=== PATIENT | male | born 1960 | race Native Hawaiian/Other Pacific Islander ===

== ENCOUNTER 2017-01-22 03:57 | Observation (INO) | payer OTHER ==
[~2017-01-22 03:57] MED LIST: MARCAINE 0.5% INFILTRATI ONE; NACL 0.9% IR ONE; XYLOCAINE 1% 20 mL INFILTRATI ONE
[2017-01-22 04:34] LABS: Basophils % (Auto) 0.5 % (0.0-1.8); Eosinophils % (Auto) 0.2 % (0.0-4.3); Hematocrit 39.9 % (35.5-45.6); Mean Corpuscular HGB Conc 35 % (32-34); Mean Corpuscular Hemoglobin 32 pg (28-32); Mean Corpuscular Volume 92 fl (84-94); Platelet Count 215 K/mm3 (140-440); Red Blood Count 4.35 M/mm3 (3.65-5.03); Red Cell Distribution Width 13.7 % (13.2-15.2); White Blood Count 9.1 K/mm3 (4.5-11.0)
[2017-01-22 04:55] LABS: Alanine Aminotransferase 21 units/L (7-56); Albumin 4.6 g/dL (3.9-5); Albumin/Globulin Ratio 1.6 %; Alkaline Phosphatase 61 units/L (35-129); Anion Gap 23 mmol/L; BUN/Creatinine Ratio 16; Blood Urea Nitrogen 11 mg/dL (9-20); Calcium 9.3 mg/dL (8.4-10.2); Carbon Dioxide 21 mmol/L (22-30); Glucose 165 mg/dL (75-100); Lipase 25 units/L (13-60); Potassium 3.8 mmol/L (3.6-5.0); Sodium 136 mmol/L (137-145); Total Protein 7.5 g/dL (6.3-8.2)
[2017-01-22] MEDS ORDERED: ZOFRAN ONE ×2 (04:59→11:20)
[2017-01-22] MEDS ORDERED: ZOFRAN IV ONE ×2 (05:00→06:50)
[2017-01-22 06:05] LABS: Bilirubin,Urine Negative (Negative); Blood,Urine Negative (Negative); Ketones,Urine Trace mg/dL (Negative)
[2017-01-22 06:06] LABS: Leukocyte Esterase,Urine Negative (Negative); Nitrite,Urine Negative (Negative); Urobilinogen,Urine < 2.0 mg/dL (<2.0)
[2017-01-22 06:12] LABS: Bacteria,Urine 1+ /HPF (Negative); RBC,Urine < 1.0 /HPF (0.0-6.0); WBC,Urine < 1.0 /HPF (0.0-6.0)
[2017-01-22] MEDS ORDERED: SUBLIMAZE IV ONE (06:50)
[2017-01-22] MEDS ORDERED: NACL 0.9% 1000 ML 1,000 ML IV ONE (06:50)
--- NOTE | 2017-01-22 06:54 | Emergency Department Report ---
HPI - General Chief Complaint: Abdominal Pain Time Seen by Provider: 01/22/17 06:45 - HPI HPI: Room 4 The patient is a 56-year-old male presenting with a chief complaint of abdominal pain. The patient states yesterday he developed pain in the right lower quadrant that is constant. Patient is to nausea and vomiting. Patient also admits to subjective fever. The patient currently gives his pain a score of 10/10. Patient does admit to anorexia Location: Right lower quadrant Duration: Constant since yesterday Quality: Pain Severity: 10/10 Modifying factors: [see above] Context: [see above] Mode of transportation: [not driving] ED Past Medical Hx - Past Medical History Previous Medical History?: No - Surgical History Past Surgical History?: No - Family History Family history: no significant - Social History Smoking Status: Never Smoker Substance Use Type: None ED Review of Systems ROS: Stated complaint: ABD PAIN Other details as noted in HPI Comment: All other systems reviewed and negative Constitutional: fever (subjective) Eyes: denies: eye pain, eye discharge, vision change ENT: denies: ear pain, throat pain Respiratory: denies: cough, shortness of breath, wheezing Cardiovascular: denies: chest pain, palpitations Endocrine: no symptoms reported Gastrointestinal: abdominal pain, nausea, vomiting Genitourinary: denies: urgency, dysuria Musculoskeletal: denies: back pain, joint swelling, arthralgia Skin: denies: rash, lesions Neurological: denies: headache, weakness, paresthesias Psychiatric: denies: anxiety, depression Hematological/Lymphatic: denies: easy bleeding, easy bruising Physical Exam - Physical Exam Vital Signs: Vital Signs 01/22/17 01/22/17 01/22/17 04:00 04:01 04:15 Temperature 99.5 F Pulse Rate 100 H Respiratory 18 18 Rate Blood Pressure 161/99 O2 Sat by Pulse 100 98 97 Oximetry 01/22/17 01/22/17 01/22/17 04:16 04:18 04:20 Temperature Pulse Rate Respiratory Rate Blood Pressure O2 Sat by Pulse 97 96 96 Oximetry 01/22/17 01/22/17 01/22/17 04:22 04:24 04:25 Temperature Pulse Rate Respiratory Rate Blood Pressure 142/96 O2 Sat by Pulse 97 96 97 Oximetry 01/22/17 01/22/17 01/22/17 04:26 04:28 04:30 Temperature Pulse Rate Respiratory Rate Blood Pressure 142/96 142/96 142/96 O2 Sat by Pulse 96 95 96 Oximetry 01/22/17 01/22/17 01/22/17 04:32 04:34 04:36 Temperature Pulse Rate Respiratory Rate Blood Pressure 142/96 142/96 142/96 O2 Sat by Pulse 94 96 94 Oximetry 01/22/17 01/22/17 01/22/17 04:38 04:40 04:42 Temperature Pulse Rate Respiratory Rate Blood Pressure 142/96 142/96 142/96 O2 Sat by Pulse 97 97 96 Oximetry 01/22/17 01/22/17 01/22/17 04:44 04:46 04:48 Temperature Pulse Rate Respiratory Rate Blood Pressure 142/96 142/96 142/96 O2 Sat by Pulse 96 95 93 Oximetry 01/22/17 01/22/17 04:50 04:52 Temperature Pulse Rate Respiratory Rate Blood Pressure 142/96 142/96 O2 Sat by Pulse 97 97 Oximetry Physical Exam: GENERAL: The patient is well-developed well-nourished male lying on stretcher not appearing to be in acute distress. [] HEENT: Normocephalic. Atraumatic. Extraocular motions are intact. Patient has moist mucous membranes. NECK: Supple. Trachea midline CHEST/LUNGS: Clear to auscultation. There is no respiratory distress noted. HEART/CARDIOVASCULAR: Regular. There is no tachycardia. There is no gallop rub or murmur. ABDOMEN: Abdomen is soft, with tenderness to palpation in the right lower quadrant. Patient has normal bowel sounds. There is no abdominal distention. SKIN: There is no rash. There is no edema. There is no diaphoresis. NEURO: The patient is awake, alert, and oriented. The patient is cooperative. The patient has normal speech MUSCULOSKELETAL: There is no evidence of acute injury. ED Course Vital Signs 01/22/17 01/22/17 01/22/17 04:00 04:01 04:15 Temperature 99.5 F Pulse Rate 100 H Respiratory 18 18 Rate Blood Pressure 161/99 O2 Sat by Pulse 100 98 97 Oximetry 01/22/17 01/22/17 01/22/17 04:16 04:18 04:20 Temperature Pulse Rate Respiratory Rate Blood Pressure O2 Sat by Pulse 97 96 96 Oximetry 01/22/17 01/22/17 01/22/17 04:22 04:24 04:25 Temperature Pulse Rate Respiratory Rate Blood Pressure 142/96 O2 Sat by Pulse 97 96 97 Oximetry 01/22/17 01/22/17 01/22/17 04:26 04:28 04:30 Temperature Pulse Rate Respiratory Rate Blood Pressure 142/96 142/96 142/96 O2 Sat by Pulse 96 95 96 Oximetry 01/22/17 01/22/17 01/22/17 04:32 04:34 04:36 Temperature Pulse Rate Respiratory Rate Blood Pressure 142/96 142/96 142/96 O2 Sat by Pulse 94 96 94 Oximetry 01/22/17 01/22/17 01/22/17 04:38 04:40 04:42 Temperature Pulse Rate Respiratory Rate Blood Pressure 142/96 142/96 142/96 O2 Sat by Pulse 97 97 96 Oximetry 01/22/17 01/22/17 01/22/17 04:44 04:46 04:48 Temperature Pulse Rate Respiratory Rate Blood Pressure 142/96 142/96 142/96 O2 Sat by Pulse 96 95 93 Oximetry 01/22/17 01/22/17 04:50 04:52 Temperature Pulse Rate Respiratory Rate Blood Pressure 142/96 142/96 O2 Sat by Pulse 97 97 Oximetry - Consultations Consultation #1: 01/22/17 07:04 Surgery paged 01/22/17 07:[address] Marquis- recommends administering Zosyn. Will evaluate patient ED Medical Decision Making - Lab Data Result diagrams: 01/22/17 04:26 01/22/17 04:26 Laboratory Tests 01/22/17 01/22/17 01/22/17 04:26 04:26 05:48 WBC 9.1 RBC 4.35 Hgb 14.0 Hct 39.9 MCV 92 MCH 32 MCHC 35 H RDW 13.7 Plt Count 215 Lymph % (Auto) 11.9 L [place] % (Auto) 4.8 Eos % (Auto) 0.2 Baso % (Auto) 0.5 Lymph # 1.1 L [place] # 0.4 Eos # 0.0 Baso # 0.0 Seg Neutrophils % 82.6 H Seg Neutrophils # 7.5 Sodium 136 L Potassium 3.8 Chloride 96.0 L Carbon Dioxide 21 L Anion Gap 23 BUN 11 Creatinine 0.7 L Estimated GFR > 60 BUN/Creatinine Ratio 16 Glucose 165 H Calcium 9.3 Total Bilirubin 1.10 AST 21 ALT 21 Alkaline Phosphatase 61 Total Protein 7.5 Albumin 4.6 Albumin/Globulin Ratio 1.6 Lipase 25 Urine Color Yellow Urine Turbidity Hazy Urine pH 7.0 Ur Specific [place] 1.010 Urine Protein 30 mg/dl Urine Glucose (UA) Negative Urine Ketones Trace Urine Blood Negative Urine Nitrite Negative Urine Bilirubin Negative Urine Urobilinogen < 2.0 Ur Leukocyte Esterase Negative Urine WBC (Auto) < 1.0 Urine RBC (Auto) < 1.0 U Epithel Cells (Auto) < 1.0 Urine Bacteria (Auto) 1+ - Radiology Data Radiology results: report reviewed (CT abdomen and pelvis), image reviewed (CT abdomen and pelvis) CT abdomen and pelvis - Differential Diagnosis appendicitis, renal colic, UTI, pyelonephritis, cholelithiasis, gastritis Critical care attestation.: If time is entered above; I have spent that time in minutes in the direct care of this critically ill patient, excluding procedure time. ED Disposition Clinical Impression: Acute abdominal pain, Acute appendicitis Disposition: OP ADMIT IP TO THIS HOSP Is pt being admited?: Yes Does the pt Need Aspirin: No Condition: Serious Referrals: PRIMARY CARE, [Primary Care Provider] - 3-5 Days Time of Disposition: 07:04 (surgery paged)
--- NOTE | 2017-01-22 07:12 | Cat Scan Report ---
FINAL REPORT EXAM: CT ABDOMEN PELVIS W CON HISTORY: RLQ pain. TECHNIQUE: Axial CT images of the abdomen and pelvis were obtained, following the administration of intravenous contrast only. Delayed axial images and coronal sagittal reformatted images were also obtained. No prior studies are available for comparison. FINDINGS: There is mild diffuse fatty infiltration of the liver. The biliary tree, gallbladder, pancreas, spleen, adrenal glands, and left kidney are unremarkable. A 1.7 cm cyst is seen in the right lower renal pole. Evaluation of the bowel is limited due to lack of oral contrast. There is mild residual stool in the right colon. The appendix is fluid-filled and distended to 1.7 cm in diameter, with mild surrounding inflammatory stranding. A 1.0 cm calcified appendicolith seen at its origin. These findings are indicative acute appendicitis. There is no intestinal obstruction or free air. The abdominal aorta is normal in caliber. There is no pathologic abdominal or pelvic lymphadenopathy. There is no free or loculated fluid collection. There is minimal wall thickening of the anterior-superior urinary bladder. There is no discrete filling defect. The prostate gland is normal in size. [id number] spondylotic and degenerative changes are seen in the spine. There are moderate to severe degenerative changes at the left hip. There are dependent changes seen at both lung bases. These findings were discussed with Dr. Kidd at time of interpretation 7:05 a.m. EST 01/22/2017. IMPRESSION: 1. Findings of acute appendicitis, with 1.0 cm calcified appendicolith at its origin. No intestinal obstruction or free air. 2. Mild diffuse fatty infiltration of the liver. 1.7 cm right renal cyst. 3. Minimal wall thickening of the anterior-superior urinary bladder, query mild cystitis.
[2017-01-22] MEDS: ZOSYN/NS 4.5GM/100ML 4.5 GM/100 ML VIAL IV ONE ×2 (07:29→08:26)
--- NOTE | 2017-01-22 08:39 | History and Physical Report ---
History of Present Illness Date of examination: 01/22/17 Date of admission: 01/22/17 Chief complaint: abd pain History of present illness: 56 year old male with 12-24 hour hx of right lower quadrant abd pain, WBC 9K, CT abd and pelvis positive for acute appendicitis. Past History Past Surgical History: No surgical history Social history: no significant social history, Medications and Allergies Allergies Allergy/AdvReac Type Severity Reaction Status Date / Time No Known Allergies Allergy Verified 01/22/17 03:59 Home Medications Medication Instructions Recorded Confirmed Last Taken Type No Known Home Medications [No 01/22/17 01/22/17 Unknown History Reported Home Medications] Active Meds: Active Medications Sodium Chloride (Nacl 0.9% 1000 Ml) 1,000 mls @ 250 mls/hr IV ONCE ONE Stop: 01/22/17 10:49 Last Admin: 01/22/17 07:25 Dose: 250 mls/hr Review of Systems - Constitutional other (abd pain) Exam Vital Signs Resp Pulse Ox 18 100 01/22/17 04:00 01/22/17 04:00 - General physical appearance Positive: no distress - Eyes Positive: PERRL, normal occular movement - ENT Positive: normal pinna, normal nares, normal mucosa, no hearing loss, no congestion - Neck Positive: no masses, no bruits, trachea midline, no venous distension - Respiratory Positive: normal expansion, normal respiratory effort, clear to auscultation - Cardiovascular Rhythm: regular - Extremities Extremities: no ischemia, pulses symmetrical, No edema Peripheral Pulses: within normal limits - Breasts Breasts: normal - Abdomen Abdomen: Present: tender (right lower quadrant to deep palpation, ), bowel sounds normal Hernia: none - Neurologic Neurologic: alert and oriented to time, place and person, motor strength and sensation are grossly intact - Psychiatric Psychiatric: appropriate mood/affect, intact judgment & insight Results - Labs 01/22/17 04:26 01/22/17 04:26 Abnormal lab results 01/22/17 01/22/17 Range/Units 04:26 04:26 MCHC 35 H (32-34) % Lymph % (Auto) 11.9 L (13.4-35.0) % Lymph # 1.1 L (1.2-5.4) K/mm3 Seg Neutrophils % 82.6 H (40.0-70.0) % Sodium 136 L (137-145) mmol/L Chloride 96.0 L (98-107) mmol/L Carbon Dioxide 21 L (22-30) mmol/L Creatinine 0.7 L (0.8-1.5) mg/dL Glucose 165 H (75-100) mg/dL Diabetes panel 01/22/17 Range/Units 04:26 Sodium 136 L (137-145) mmol/L Potassium 3.8 (3.6-5.0) mmol/L Chloride 96.0 L (98-107) mmol/L Carbon Dioxide 21 L (22-30) mmol/L BUN 11 (9-20) mg/dL Creatinine 0.7 L (0.8-1.5) mg/dL Glucose 165 H (75-100) mg/dL Calcium 9.3 (8.4-10.2) mg/dL AST 21 (5-40) units/L ALT 21 (7-56) units/L Alkaline Phosphatase 61 (35-129) units/L Total Protein 7.5 (6.3-8.2) g/dL Albumin 4.6 (3.9-5) g/dL Calcium panel 01/22/17 Range/Units 04:26 Calcium 9.3 (8.4-10.2) mg/dL Albumin 4.6 (3.9-5) g/dL Pituitary panel 01/22/17 Range/Units 04:26 Sodium 136 L (137-145) mmol/L Potassium 3.8 (3.6-5.0) mmol/L Chloride 96.0 L (98-107) mmol/L Carbon Dioxide 21 L (22-30) mmol/L BUN 11 (9-20) mg/dL Creatinine 0.7 L (0.8-1.5) mg/dL Glucose 165 H (75-100) mg/dL Calcium 9.3 (8.4-10.2) mg/dL Adrenal panel 01/22/17 Range/Units 04:26 Sodium 136 L (137-145) mmol/L Potassium 3.8 (3.6-5.0) mmol/L Chloride 96.0 L (98-107) mmol/L Carbon Dioxide 21 L (22-30) mmol/L BUN 11 (9-20) mg/dL Creatinine 0.7 L (0.8-1.5) mg/dL Glucose 165 H (75-100) mg/dL Calcium 9.3 (8.4-10.2) mg/dL Total Bilirubin 1.10 (0.1-1.2) mg/dL AST 21 (5-40) units/L ALT 21 (7-56) units/L Alkaline Phosphatase 61 (35-129) units/L Total Protein 7.5 (6.3-8.2) g/dL Albumin 4.6 (3.9-5) g/dL Assessment and Plan Acute appendicitis, admit, NPO, IV fluids, antibiotics iv and lap appendectomy/ possible open appendectomy.
[2017-01-22] MEDS ORDERED: XYLOCAINE MPF 2% ONE (09:07)
[2017-01-22] MEDS ORDERED: ZEMURON IV ONE (09:07)
[2017-01-22] MEDS ORDERED: SUBLIMAZE ONE (09:07)
[2017-01-22] MEDS ORDERED: QUELICIN ONE (09:07)
[2017-01-22] MEDS ORDERED: DIPRIVAN 10 MG/ML IV ONE (09:08)
[2017-01-22] MEDS ORDERED: MILK OF MAGNESIA PO PRN (09:30)
[2017-01-22] MEDS ORDERED: TYLENOL PO PRN (09:30)
[2017-01-22] MEDS ORDERED: XYLOCAINE 1% 20 mL ONE (09:30)
[2017-01-22] MEDS ORDERED: MARCAINE 0.5% 30 ML INFILTRATI ONE (09:30)
[2017-01-22] MEDS ORDERED: ZOFRAN IV PRN (09:30)
[2017-01-22] MEDS ORDERED: DILAUDID IV ONE (09:38)
--- NOTE | 2017-01-22 09:40 | Anesthesia Consultation ---
Anesthesia Consult and Med Hx Date of service: 01/22/17 - Airway Anesthetic Teeth Evaluation: Good ROM Head & Neck: Adequate Mental/Hyoid Distance: Adequate Mallampati Class: Class II Intubation Access Assessment: Probably Good - Pulmonary Exam CTA: Yes - Cardiac Exam Cardiac Exam: RRR - Pre-Operative Health Status ASA Pre-Surgery Classification: ASA2 Proposed Anesthetic Plan: General - Pulmonary Hx Smoking: No - Cardiovascular System Hx Hypertension: Yes (not on medication at this time) - Central Nervous System Hx Neuromuscular Disorder: No Hx Psychiatric Problems: No - Gastrointestinal Hx Gastroesophageal Reflux Disease: Yes (mild) - Endocrine Hx Renal Disease: No Hx Insulin Dependent Diabetes: No - Hematic Hx Anemia: No Hx Sickle Cell Disease: No - Other Systems Hx Alcohol Use: Yes (1-2 drinks/week) Hx Substance Use: No Hx Cancer: No Hx Obesity: No
[2017-01-22] MEDS ORDERED: NACL 0.9% 1000 ML 1,000 ML IV SCH (10:00)
[2017-01-22] MEDS ORDERED: VERSED IV NR ×2 (10:00)
[2017-01-22] MEDS ORDERED: PEPCID IV NR (10:00)
[2017-01-22] MEDS ORDERED: LACTATED RINGERS 1,000 ML IV SCH (10:00)
[2017-01-22] MEDS ORDERED: DULCOLAX PR PRN (10:00)
[2017-01-22] MEDS ORDERED: DECADRON ONE (10:31)
[2017-01-22] MEDS ORDERED: NACL 0.9% IR ONE (11:02)
[2017-01-22] MEDS ORDERED: XYLOCAINE 1% 20 mL INFILTRATI ONE (11:15)
[2017-01-22] MEDS ORDERED: MARCAINE 0.5% INFILTRATI ONE (11:15)
--- NOTE | 2017-01-22 11:19 | Post Operative Note ---
Pre-op diagnosis: acute appendicitis Post-op diagnosis: same Findings: acute appendicitis Procedure: laparoscopic appendectomy Anesthesia: GETA Surgeon: RONEN CHAMORRO Estimated blood loss: minimal Pathology: list (appendix) Condition: stable Disposition: floor
[2017-01-22] MEDS: ZOSYN/NS 4.5GM/100ML 4.5 GM/100 ML VIAL IV SCH ×2 (15:00→23:32)
[2017-01-22] MEDS: DILAUDID IV PRN ×2 (16:35→20:25)
[2017-01-23] MEDS: ZOSYN/NS 4.5GM/100ML 4.5 GM/100 ML VIAL IV SCH (06:20)
[2017-01-23 07:57] LABS: Hematocrit 36.2 % (35.5-45.6); Hemoglobin 12.3 gm/dl (11.8-15.2); Mean Corpuscular HGB Conc 34 % (32-34); Mean Corpuscular Hemoglobin 32 pg (28-32); Mean Corpuscular Volume 94 fl (84-94); Platelet Count 186 K/mm3 (140-440); Red Blood Count 3.87 M/mm3 (3.65-5.03); Red Cell Distribution Width 13.9 % (13.2-15.2); White Blood Count 7.6 K/mm3 (4.5-11.0)
[2017-01-23] MEDS: DILAUDID IV PRN (08:56)
[2017-01-23 12:56] VITALS: BP 152/89
--- NOTE | 2017-01-23 13:29 | Discharge Summary ---
Providers - Providers Date of Admission: 01/22/17 09:40 Date of discharge: 01/23/17 Attending physician: RONEN CHAMORRO 01/22/17 07:06 Consult to Physician [CONS] Urgent Consulting Provider: RONEN CHAMORRO Reason For Exam: acute appendicitis Place consult to:: phone Notified:: y Primary care physician: ZAID RODRIGUEZ MD Hospitalization Reason for admission: acute appendicitis Condition: Good Pertinent studies: CT abd pelvis Procedures: lap appendectomy Hospital course: Pt admitted, NPO iv antibiotics and fluids, taken to OR uneventful lap appendectomy, did well, tolerated diet, sent home.POD 1 labs OK. Disposition: DC-01 TO HOME OR SELFCARE Time spent for discharge: 20min. - Discharge Diagnoses (1) Acute appendicitis Status: Acute Qualifiers: Acute appendicitis type: with localized peritonitis Qualified Code(s): K35.3 - Acute appendicitis with localized peritonitis Core Measure Documentation - Palliative Care Palliative Care/ Comfort Measures: Not Applicable - Core Measures Any of the following diagnoses?: none Exam - Constitutional Vitals: Temp Pulse Resp BP Pulse Ox 98.4 F 89 18 152/89 96 01/23/17 12:42 01/23/17 08:31 01/23/17 12:42 01/23/17 12:42 01/23/17 08:31 General appearance: Present: no acute distress - EENT Eyes: Present: PERRL ENT: hearing intact, clear oral mucosa - Neck Neck: Present: supple, normal ROM - Respiratory Respiratory effort: normal - Cardiovascular Rhythm: regular - Extremities Extremities: pulses symmetrical, No edema Peripheral Pulses: within normal limits - Abdominal General gastrointestinal: Present: soft, non-tender, normal bowel sounds ( incisions OK) - Musculoskeletal Musculoskeletal: gait normal, strength equal bilaterally - Psychiatric Psychiatric: appropriate mood/affect, intact judgment & insight - Neurologic Neurologic: CNII-XII intact, moves all extremities Plan Weight Bearing Status: Full Weight Bearing Diet: regular Wound: open to air Follow up with: PRIMARY CARE, [Primary Care Provider] - 3-5 Days
--- NOTE | 2017-01-23 17:52 | Discharge Summary ---
DISCHARGE DIAGNOSIS: Acute appendicitis. PROCEDURES: The patient underwent CT scan of the abdomen and pelvis and subsequent laparoscopic appendectomy. HOSPITAL COURSE: See my history and physical for details, but basically, this is 56-year-old gentleman who presented with abdominal pain, white count was normal. He underwent a CT scan which was consistent with early acute appendicitis. He was given IV fluids, IV antibiotics, and taken to Surgery where he underwent an uneventful laparoscopic appendectomy. He tolerated the procedure well and was transferred to the floor. He tolerated clear liquids. He initially had low-grade fever but this resolved completely. He was in normal sinus rhythm, ambulatory, tolerating clear liquids. By the time of discharge, his vital signs were completely stable. His incisions were healing beautifully. He was instructed on wound care, given antibiotics, Cipro 500 p.o. b.i.d. for 5 days and Percocet for pain. I will follow him closely as an outpatient. If his total knee problems arise, he is to return to the Emergency Room. He was also instructed on wound care and lifting restriction. JOB# [id number] ABDIAS/NTS
--- NOTE | 2017-02-02 13:59 | Operative Report ---
PREOPERATIVE DIAGNOSIS: Acute appendicitis. POSTOPERATIVE DIAGNOSIS: Acute appendicitis. PROCEDURE: Laparoscopic appendectomy. SPECIMEN: Consisted of the appendix. ANESTHESIA: The procedure was done under general. ESTIMATED BLOOD LOSS: Minimal. PATHOLOGY: Consisted of the appendix. CONDITION: Stable. DISPOSITION: To the floor. OPERATIVE PROCEDURE: After informed consent, the patient was brought to the operating room, induced under general anesthesia. He received IV antibiotics. He had compression stockings in place. He was sterilely prepped and draped for standard laparoscopic appendectomy with the left arm tucked. He was sterilely prepped and draped. A skin wheal was raised in the right mid quadrant lateral to the epigastrics with 0.5% Marcaine mixed with 1% lidocaine. Then, a small incision was made with a 11 scalpel. Veress needle was introduced, tested and found to be satisfactorily placed and the intraabdominal cavity was insufflated to acceptable parameters with CO2. The Veress needle was removed. Under direct visualization with Optiview technique a 5 mm 30-degree scope was used to place the 5 mm port. In a like fashion, a 5 mm port was placed in the left mid quadrant lateral to the epigastrics and a 12 mm port in the subumbilical position. This was all done under visualization with the camera. Then, the patient was positioned properly. The appendix was visualized, traction was placed on the tip of the appendix with Davin and Gefang forceps. Utilizing a curved [place], the mesoappendix was teased away at the base of the appendix, flushed with the cecum and then utilizing 2 applications of endoluminal staplers, a vascular cartridge was used for the mesoappendix and vascular cartridge for the base of the appendix as well. There was excellent hemostasis. The appendix was removed in an EndoCatch bag and then the area was examined for evidence of bleeding, there was none present. A 5 mm clip was placed at the base of the appendiceal artery stump, had excellent hemostasis. The abdomen was washed out locally with [place] irrigation system until clear and then I once again examined the area where the appendix was removed. There was no bleeding. There was excellent hemostasis, then the ports were withdrawn under direct visualization with the scope. A UR 6-0 Vicryl was used to close the 12 mm port site and 4-0 Monocryl was used for the skin incisions with Dermaflex or Dermabond. The patient tolerated the procedure well and was transferred to recovery room in stable condition. The sponge and needle count was correct x 2. JOB# [id number] ABDIAS/[place]
== END 2017-01-23 15:30 | disposition home or self-care (01) ==
LOC: ED 03:57 → OR 09:39 → 3A 09:40 → 3B-SURG 11:19
PROVIDERS: ADMIT Surgery; ATTEND Surgery
DX: K35.80 Unspecified acute appendicitis (principal)
CPT/HCPCS: 36415; 44970; 74177; 80053; 81001; 83690; 85025; 88304; 96365; 96375; 96376; 99285; A4217; G0378; J0330; J1100; J1170; J2250; J2405; J2543; J2704; J3010; J7030; Q9967